=== PATIENT | male | born 1975 | race Asian ===

== ENCOUNTER 2018-02-10 01:51 | Emergency (ER) | payer OTHER ==
[~2018-02-10] VITALS: Ht 167.6 cm; Wt 65.8 kg
[2018-02-10 01:51] VITALS: BP_SYST 121
[2018-02-10 02:25] VITALS: BP_SYST 122
== END 2018-02-10 02:25 ==
LOC: SED 01:51
DX: Z02.89 Encounter for other administrative examinations (principal)